=== PATIENT | female | born 1950 | race Caucasian/White ===

== ENCOUNTER 2023-11-28 12:30 | Outpatient (RCR) | payer MEDICARE, SELFPAY ==
--- NOTE | 2023-09-02 12:29 | PTOPEVAL1 ---
Assessment and note entered by Ilan Sanford, PT Evaluation Information Assessment Status Evaluation Diagnosis Jac foot pain, altered gait, post bunionectomy Onset 03/25/23 Subjective Information Reports that she had jac bunionectomy last year. Continues to have a lot of swelling and soft tissue pain in foot. Having trouble getting toes to lay flat. Feels shew is walking better than she was prior to surgery and having less pain across top of foot, but still has some mobility issues to work. Feels her balance is also better since surgery. She has been wearing LE compression sleeves for swelling. Reported Pain Level Pain Score 3: Self Report Assessment PT Clinical Summary Patient presents with with poor L ankle eversion and R ankle dorsiflexion. Edema noted in L lateral ankle. Patient will benefit from skilled therapy to address scar mobility and ankle mobility to normalize gait pattern and improve gross ambulation and functional performance of jac LE. Plan of Care Interventions Gait Training,Hot Pack/Cold Pack,Manual Therapy, Neuro Re-education,Therapeutic Activities, Therapeutic Exercise PT Services Indicated Yes Treatment Frequency and 2-3x/week for 8 visits Duration These treatments will address the objective and functional deficits as defined above. The patient will be advanced safely and appropriately in order for the patient to progress towards his/her prior level of function. Additional exercises will be introduced and as well as a comprehensive home exercise program upon discharge, if needed, ?to ensure carryover of functional gains achieved in the clinic. This treatment plan has been reviewed and agreement upon by the patient.
--- NOTE | 2023-09-02 12:29 | OPREHPOC ---
Outpatient Therapy Plan of Care This is a Multidisciplinary Plan of Care that may contain components documented by all disciplines (PT, OT, and ST.) PT Problem 1 PT Problem #1 Knowledge Deficit PT Goal 1 Goal [place] with HEP PT Problem 2 PT Problem #2 Impaired Range of Motion PT Goal 1 Goal Demonstrate 10 degrees of L ankle eversion Target Visit 8 PT Goal 2 Goal Demonstrate 15 degrees of R ankle dorsiflexion to improve terminal stance and gait pattern Target Visit 8 PT Problem 3 PT Problem #3 Impaired Sensation PT Goal 1 Goal Demonstrate decreased sensitivity of R foot plantar scarring through soft tissue mobilization and scar massage education Target Visit 8
--- NOTE | 2023-09-10 14:24 | PCPTNOTE ---
Patient canceled appointment this date per request.
--- NOTE | 2023-09-19 09:50 | PCPTNOTE ---
Patient cancelled today's appointment secondary to time mix up.
--- NOTE | 2023-09-23 16:45 | OPREHPOC ---
Outpatient Therapy Plan of Care This is a Multidisciplinary Plan of Care that may contain components documented by all disciplines (PT, OT, and ST.) PT Problem 1 PT Problem #1 Knowledge Deficit PT Goal 1 Goal [place] with HEP Progress Met PT Problem 2 PT Problem #2 Impaired Range of Motion PT Goal 1 Goal Demonstrate 10 degrees of L ankle eversion Target Visit 8 Progress Partially Met PT Goal 2 Goal Demonstrate 15 degrees of R ankle dorsiflexion to improve terminal stance and gait pattern Target Visit 8 Progress Partially Met PT Problem 3 PT Problem #3 Impaired Sensation PT Goal 1 Goal Demonstrate decreased sensitivity of R foot plantar scarring through soft tissue mobilization and scar massage education Target Visit 8 Progress Partially Met
--- NOTE | 2023-09-23 16:45 | PTOPPROG ---
Assessment and note entered by Ilan Sanford, PT Evaluation Information Assessment Status Progress Diagnosis Jac foot pain, altered gait, post bunyonectomy Onset 03/25/23 Subjective Information Patient reports that she feels that she has made a lot of progress with foot sensitivity and ankle motion. Feels that she still has deficits that can be addressed through manual intervention and instruction and will continue to benefit from skilled therapy mobilization to address these deficits. Assessment PT Clinical Summary Patient has made progress with ankle mobility and functional strength. Continues to have pain from scar tissue agitation and gait adaptation. Will continue to benefit from skilled therapy to address deficits. Plan of Care Interventions Gait Training,Hot Pack/Cold Pack,Manual Therapy, Neuro Re-education,Therapeutic Activities, Therapeutic Exercise PT Services Indicated Yes Treatment Frequency and 2-3x/week for 8 visits Duration These treatments will address the objective and functional deficits as defined above. The patient will be advanced safely and appropriately in order for the patient to progress towards his/her prior level of function. Additional exercises will be introduced and as well as a comprehensive home exercise program upon discharge, if needed, ?to ensure carryover of functional gains achieved in the clinic. This treatment plan has been reviewed and agreement upon by the patient.
--- NOTE | 2023-10-31 10:46 | PCPTNOTE ---
Patient cancelled re-evaluation for today. Will be reschedule as needed.
--- NOTE | 2023-11-07 16:58 | OPREHPOC ---
Outpatient Therapy Plan of Care This is a Multidisciplinary Plan of Care that may contain components documented by all disciplines (PT, OT, and ST.) PT Problem 1 PT Problem #1 Knowledge Deficit PT Goal 1 Goal [place] with HEP Progress Met PT Problem 2 PT Problem #2 Impaired Range of Motion PT Goal 1 Goal Demonstrate 10 degrees of L ankle eversion Target Visit 22 Progress Partially Met PT Goal 2 Goal Demonstrate 15 degrees of R ankle dorsiflexion to improve terminal stance and gait pattern Target Visit 22 Progress Partially Met PT Problem 3 PT Problem #3 Impaired Sensation PT Goal 1 Goal Demonstrate decreased sensitivity of R foot plantar scarring through soft tissue mobilization and scar massage education Target Visit 22 Progress Partially Met
--- NOTE | 2023-11-07 16:58 | PTOPPROG ---
Assessment and note entered by Ilan Sanford, PT Evaluation Information Assessment Status Progress Diagnosis Jac foot pain, altered gait, post bunyonectomy Onset 03/25/23 Subjective Information Patient reports that she feels that she has made a lot of progress with foot sensitivity and ankle motion. Feels that she still has deficits that can be addressed through manual intervention and instruction and will continue to benefit from skilled therapy mobilization to address these deficits. Assessment PT Clinical Summary Patient has shown improvement in bilateral ankle ROM greater on right side. Continues to show ROM deficits in ankle gross mobility and toe mobility but has improved. Needs to emphasize stabilization and proprioception in addition to left ankle mobility moving forward. Plan of Care Interventions Gait Training,Hot Pack/Cold Pack,Manual Therapy, Neuro Re-education,Therapeutic Activities, Therapeutic Exercise PT Services Indicated Yes Treatment Frequency and 2x/week for 8 visits Duration These treatments will address the objective and functional deficits as defined above. The patient will be advanced safely and appropriately in order for the patient to progress towards his/her prior level of function. Additional exercises will be introduced and as well as a comprehensive home exercise program upon discharge, if needed, ?to ensure carryover of functional gains achieved in the clinic. This treatment plan has been reviewed and agreement upon by the patient.
== END 2023-12-01 10:01 | disposition still patient (30) ==
LOC: ANHGOSHPT 12:30
DX: M79.671 Pain in right foot (principal); M79.672 Pain in left foot
CPT/HCPCS: 97110; 97140; 97161

== ENCOUNTER 2023-12-12 12:30 | Outpatient (RCR) | payer MEDICARE, SELFPAY ==
--- NOTE | 2023-12-12 15:17 | PTOPDC ---
Assessment and note entered by Ilan Sanford, PT Discharge Information Assessment Status Discharge Diagnosis Scar tissue, foot pain Subjective Information Reports that at this point she is doing better. Still has some pain but has been seeing improvement. Feels t this point she has met her objective limits for improvement, but overall happy where she is. Reported Pain Level Pain Score 0: Self Report Assessment PT Clinical Summary Patient has met all goals for therapy at this time . Demonstrates improved digital motion, reduced scar tissue limitation, and improved overall gait. Will continue with home intrinsic activity and self mobilization for prison success. Plan of Care PT Services Indicated D/C to HEP
--- NOTE | 2023-12-12 15:18 | PCPTNOTE ---
Patient chart carried forward from #[id number]
--- NOTE | 2023-12-12 15:19 | PTOPEVAL1 ---
Assessment and note entered by Ilan Sanford, PT Evaluation Information Assessment Status Evaluation Diagnosis Scar tissue, foot pain Subjective Information Reports that at this point she is doing better. Still has some pain but has been seeing improvement. Feels t this point she has met her objective limits for improvement, but overall happy where she is. Reported Pain Level Pain Score 0: Self Report Assessment PT Clinical Summary Patient has met all goals for therapy at this time . Demonstrates improved digital motion, reduced scar tissue limitation, and improved overall gait. 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 Plan of Care PT Services Indicated Yes Treatment Frequency and D/C to HEP Duration These treatments will address the objective and functional deficits as defined above. The patient will be advanced safely and appropriately in order for the patient to progress towards his/her prior level of function. Additional exercises will be introduced and as well as a comprehensive home exercise program upon discharge, if needed, ?to ensure carryover of functional gains achieved in the clinic. This treatment plan has been reviewed and agreement upon by the patient.
== END 2023-12-15 10:12 | disposition home or self-care (01) ==
LOC: ANHGOSHPT 12:30
DX: M79.671 Pain in right foot (principal); R26.89 Other abnormalities of gait and mobility; Z98.890 Other specified postprocedural states
CPT/HCPCS: 97110; 97140

== ENCOUNTER 2024-02-18 18:38 | Emergency (ER) | payer MEDICARE, SELFPAY ==
[2024-02-18] VITALS (8 sets, daily range): BP systolic 115–154; BP diastolic 66–85; PULSE 57–77; RESP 12–23; TEMP 36.7; O2SAT 98–100
--- NOTE | ~2024-02-18 | CT_ITS ---
EXAMINATION: CT abdomen pelvis wo con DATE: 02/18/2024 22:26 INDICATION: Abdominal pain and right flank pain. TECHNIQUE: Computed tomography (CT) of the abdomen and pelvis was performed without intravenous contr ast. Automated exposure control and iterative reconstruction technique were employed. The dose-length product was 381.69 mGy-cm. COMPARISON: None FINDINGS: Mild atelectasis of the bilateral lower lungs. Heart size is normal. Atherosclerotic coronary artery calcification. No pericardial or pleural effusion. Cholecystectomy clips in the gallbladder fossa. Di ffuse hepatic steatosis. Spleen, pancreas and bilateral adrenal glands are normal. 7 x 4 x 4 mm obstr ucting stone at the proximal right ureter with mild right hydronephrosis. A couple additional stones measuring up to 2 mm in the lower pole of the right kidney. There are 5 nonobstructing stones in the left kidney, the largest measuring 5 mm. There is moderate colonic diverticulosis with a sigmoid pred ominance. There is no adjacent inflammatory change to suggest diverticulitis. No bowel obstruction. The appendix is not visualized. No pericecal inflammatory change to suggest acute appendicitis. Bladd er is normal. The uterus is not identified and has likely been surgically resected. No free intraperi toneal gas or fluid. No pathologically enlarged abdominal or pelvic lymphadenopathy. Lumbar levoscoli osis with severe spondylosis. 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 IMPRESSION: 1. Bilateral nephrolithiasis with obstructing 7 x 4 x 4 mm proximal right ureteral stone with moderat e hydronephrosis. Reviewed, dictated and finalized at location A. IMPRESSION: 1. Bilateral nephrolithiasis with obstructing 7 x 4 x 4 mm proximal right urete ral stone with moderate hydronephrosis.
[2024-02-18 21:10] LABS: Basophils Absolute Auto 0.1 K/mm3 (0.0-0.1); Basophils Percent Auto 0.4 % (0.2-1.2); Eosinophils Percent Auto 0.1 % (0-4.4); Hemoglobin 15.1 g/dL (12.0-15.0); Immature Granulocyte Absolute 0.05 K/mm3 (0.00-0.031); Immature Granulocyte Percent A 0.3 % (0-0.5); Lymphocytes Percent Auto 11.1 % (18.3-44.2); Mean Corpuscular Hemoglobin 34.5 pg (26-34); Mean Corpuscular Volume 95.9 fl (80-100); Mean Platelet Volume 9.9 fl (7.4-10.4); Monocytes Absolute Auto 0.4 K/mm3 (0.1-0.6); Monocytes Percent Auto 2.6 % (2.6-8.5); Neutrophils Percent Auto 85.5 % (45.5-73.1); Platelet Count Result 219 k/mm3 (150-375); Red Blood Count 4.38 M/mm3 (4.2-5.4); Red Cell Distribution Width 13.6 % (11.5-14.5); White Blood Count 15.3 K/mm3 (4.5-10.0)
[2024-02-18 21:25] LABS: Alanine Aminotransferase 39 U/L (6-35); Albumin Level 4.8 g/dL (3.5-5.1); Alkaline Phosphatase 69 U/L (38-126); Anion Gap 13 mmol/L (4-12); Aspartate Amino Transferase 48 U/L (14-36); Bilirubin,Total 0.7 mg/dL (0.2-1.3); Blood Urea Nitrogen 19 mg/dL (7-17); Carbon Dioxide 24 mmol/L (22-30); Chloride 101 mmol/L (98-107); Estimated Glomerular Filt Rate > 60; Glucose 123 mg/dL (65-110); Sodium 138 mmol/L (137-145)
[2024-02-18] MEDS: SODIUM CHLORIDE 0.9% IV 1,000 ML 999 ML IV CONT (21:33)
[2024-02-18] MEDS: MORPHINE SULFATE (*CRX) 4 MG/ML INJ IV PUSH (21:33)
[2024-02-18] MEDS: ONDANSETRON INJ 4 MG/2 ML VIAL IV PUSH (21:33)
[2024-02-18 21:35] LABS: Add Urine Microscopic? YES; Appearance Urine Cloudy (Clear); Bacteria Urine 3+ /hpf; Bilirubin Urine Negative (Negative); Blood Urine 3+ (Negative); Color Urine Yellow (Yellow); Glucose Urine UA Negative (Negative); Ketones Urine 1+ mg/dL (Negative); Leukocyte Esterase Ur Trace LEU/UL (Negative); Nitrate Urine Negative (Negative); Non Pathogenic Casts 0-2; Protein Urine 1+ mg/dL (Negative); RBC Urine >100 /hpf (0-2); Specific Grav Ur 1.018 (1.001-1.035); Squamous Epithelial Cell Urine Moderate /hpf (Few); Urobilinogen Urine 0.2 mg/dL (<2.0); pH Urine 5.5 (5.0-9.0)
--- NOTE | 2024-02-18 22:58 | ED.GENADULT ---
HPI - General Adult General Chief complaint: Urogenital-Female Stated complaint: Rt Flank Pain Time Seen by Provider: 02/18/24 21:25 History of Present Illness HPI narrative: patient is a 73-year-old female presents emergency department chief complaint of right-sided flank pain. Patient reports he has prior history of kidney stones and is followed by urology over in [place]. Patient reports that she does have an appointment to see her urologist on Friday reports pain got really bad today. Patient denies fever reports that her urine looked darker similar whenever she has had stones before in the past the patient has required lithotripsy and stent placement Related Data Allergies Allergy/AdvReac Type Severity Reaction Status Date / Time adhesive tape Allergy Unknown lazara/rash Verified 11/27/16 06:20 clarithromycin Allergy Unknown Verified 03/25/16 08:32 levofloxacin Allergy Unknown Verified 03/25/16 08:32 Penicillins Allergy Unknown Verified 03/25/16 08:32 sucralfate Allergy Unknown Verified 03/25/16 08:32 Review of Systems Review of Systems: A 10 system review of systems was completed on the patient and is negative except for what is stated in the HPI. Nursing and ancillary documentation was reviewed. [facility], [facility] Family History Family History Father Family history of liver disease Sibling Malignant neoplasm of prostate Family history of lung cancer Family history of malignant neoplasm of esophagus Social History Social History Smoking status: Former smoker Smoking end date: 06/30/88 Alcohol intake: current Exam Narrative: GENERAL: Well-appearing, well-nourished, and in no acute distress. HEAD: Normocephalic, atraumatic. EYES: PERRLA and EOMI. ENT: Nares clear, no rhinorrhea or epistaxis. Mucous membranes moist. NECK: Supple. CHEST: Clear to auscultation. No respiratory distress. HEART: Regular rate and rhythm. No murmur heard. Normal peripheral pulses. ABDOMEN: Soft, nontender, nondistended, normal active bowel sounds. EXTREMITIES: Normal range of motion. No edema. SKIN: Warm, dry, no rash. NEURO: No focal deficits. Alert and oriented x3. PSYCH: Normal mood and affect. Course Vital Signs Vital signs: Vital Signs Pulse Rate 57 L 02/18/24 21:00 Respiratory Rate 14 02/18/24 21:00 Blood Pressure 115/66 02/18/24 21:00 Pulse Oximetry 100 02/18/24 21:00 Temperature 36.7 C 02/18/24 21:05 Pulse Rate 75 02/18/24 22:16 Respiratory Rate 15 02/18/24 22:16 Blood Pressure 133/70 02/18/24 22:16 Pulse Oximetry 98 02/18/24 22:16 Medical Decision Making [facility] Narrative Medical decision making narrative: Differential diagnosis includes ureterolithiasis, UTI, pyelonephritis laboratory studies showed white count 15.3 electrolytes showed a creatinine of 0.7 urinalysis showed 6-10 white blood cells 3+ bacteria trace leukocyte esterase with greater than [address] scan of the abdomen pelvis showed . Bilateral nephrolithiasis with obstructing 7 x 4 x 4 mm proximal right ureteral stone with moderate hydronephrosis patient is nonseptic appearing afebrile and is feeling much better. The patient would like to be managed outpatient lean follow-up with her urologist. Patient was given a urine strainer and will be started on Keflex [place] Zofran and Flomax. Vital Signs Vital Signs: Vital Signs Pulse Rate 57 L 02/18/24 21:00 Respiratory Rate 14 02/18/24 21:00 Blood Pressure 115/66 02/18/24 21:00 Pulse Oximetry 100 02/18/24 21:00 Temperature 36.7 C 02/18/24 21:05 Pulse Rate 75 02/18/24 22:16 Respiratory Rate 15 02/18/24 22:16 Blood Pressure 133/70 02/18/24 22:16 Pulse Oximetry 98 02/18/24 22:16 Lab Data 02/18/24 21:04 02/18/24 21:04 Labs: Lab Results
[2024-02-18] MEDS: CEPHALEXIN 500 MG CAPSULE PO (23:17)
== END 2024-02-18 23:20 | disposition home or self-care (01) ==
PROVIDERS: Emergency Provider Emergency Medicine
DX: N20.1 Calculus of ureter (principal); Z87.891 Personal history of nicotine dependence
CPT/HCPCS: 36415; 74176; 80053; 81001; 85025; 87086; 96361; 96374; 96375; 99284; A9270; J2270; J2405; J7030